=== PATIENT | male | born 1990 | race Hispanic/Latino ===

== ENCOUNTER 2024-12-28 15:11 | Emergency (ER) | payer SELFPAY ==
[~2024-12-28] VITALS: Ht 172.7 cm; Wt 122.5 kg
[~2024-12-28 15:11] MED LIST: IBUP-2070 PO
--- NOTE | 2024-12-28 15:43 | HMCIMG ---
EXAM: CR Lumbar Spine, 3 View. CLINICAL HISTORY: back pain COMPARISON: None provided. FINDINGS: BONES: No acute fracture or aggressive appearing osseous lesion. ALIGNMENT: Alignment is within normal limits. No significant scoliosis. DISCS / DEGENERATIVE CHANGES: Mild disc disease at L5-S1. SOFT TISSUES: The soft tissues are unremarkable. IMPRESSION: No acute lumbar spine abnormality evident. Mild disc disease at L5-S1. /[place]
--- NOTE | 2024-12-28 15:50 | ERN ---
ED Note History of Present Illness Stated Complaint: BACK PAIN Chief Complaint: Back Pain or Injury Time Seen by MD: 15:14 Time Seen by Midlevel: 15:16 Dictation: 34-year-old male with no past medical history or surgical history coming in with complaints of lower back pain onset yesterday but worsening today. Denies any incontinence, numbness, tingling or weakness. Denies any trauma. Allergies: Coded Allergies: No Known Drug Allergies (Unverified Allergy, Unknown, 12/28/24) Home Meds Active Scripts Ibuprofen (Ibuprofen) 600 Mg Tablet, 600 MG PO Q6H PRN for PAIN, #15 TAB Prov:DAVID AGUILAR CONTACT ASSEMBLER 11/26/21 Past Medical History Past Medical History: No Pertinent History Surgical History: None Review of System Dictation Constitutional: Negative for fever,chills, and weight loss Eyes: Negative for injury, pain,redness, and discharge ENT: Negative for injury,pain or swelling Cardiovascular: Negative for chest pain, palpitations, and edema Respiratory: Negative for shortness of breath, cough, and wheezing, Abdomen/GI: Negative for abdominal pain, nausea, vomiting, diarrhea, and constipation Back: Complaining of lower back pain : Negative for injury, bleeding and discharge MS/Extremity: Negative for injury and deformity Skin: Negative for rash, and discoloration Neuro: Negative for headache, weakness, numbness, tingling, and seizure Psych: Negative for suicide ideation, homicidal ideation, and hallucinations Review of Systems: was completed Initial Vital Sign VS Vital Signs Date Time Temp Pulse Resp B/P (MAP) Pulse Ox O2 Delivery O2 Flow Rate FiO2 12/28/24 15:15 98.4 78 16 143/93 99 Room Air 0 12/28/24 15:49 21 Physical Exam Dictation General: awake, alert, NAD Head/Face: Normocephalic, atraumatic Eyes: PERRL, EOMI, vision at baseline ENT: oral cavity clear, TMs clear, no signs of infection Neck: Trachea midline, supple, no nuchal rigidity Cardiovascular: RRR, normal S1/S2, No MRGs, no JVD Respiratory: CTAB, no respiratory distress, No rales or wheezes Abdomen: Soft, non-tender, non-distended, normal bowel sounds, no guarding or rebound. Skin: Warm, dry, normal turgor, no rash MS/Extremity: Pulses equal, no cyanosis, neurovascular intact, FROM Neuro: COAx4, GCS 15, strength 5/5, CN 2-12 intact, normal cerebellar exam, normal gait, Psych: Normal behavior, mood, and affect normal ED Course ED Course Orders Procedure Category Date Status Time Lumbar Spine 2-3vws RAD 12/28/24 Resulted 15:16 Triamcinolone Acet PHA 12/28/24 Complete 40mg/Ml 1ml (Kenalog 15:16 Orphenadrine Citrate PHA 12/28/24 Complete (Norflex) 15:16 Ketorolac PHA 12/28/24 Complete Tromethamine 15mg/Ml 15:16 Tramadol Hcl (Ultram) PHA 12/28/24 Transmitted 16:55 Current Medications Medications (Trade) Dose Ordered Sig/Elicia Route PRN Reason Start Time Stop Time Status Last Admin Dose Admin Ketorolac Tromethamine (toRADol) 15 mg ONCE STAT IM 12/28/24 15:16 12/28/24 15:24 DC 12/28/24 16:10 Orphenadrine Citrate (Norflex) 60 mg ONCE STAT IM 12/28/24 15:16 12/28/24 15:24 DC 12/28/24 16:10 Triamcinolone Acetonide (Kenalog 40) 40 mg ONCE STAT IM 12/28/24 15:16 12/28/24 15:24 DC 12/28/24 16:10 Vital Signs Date Time Temp Pulse Resp B/P (MAP) Pulse Ox O2 Delivery O2 Flow Rate FiO2 12/28/24 15:49 98.4 78 16 143/93 99 Room Air* 0 21 12/28/24 15:15 98.4 78 16 143/93 99 Room Air 0 Medical Decision Making MDM MDM: 34-year-old male with no past medical history or surgical history coming in with complaints of lower back pain onset yesterday but worsening today. Denies any incontinence, numbness, tingling or weakness. Denies any trauma. X-ray of the L-spine shows mild disc disease at L5 through S1. No acute lumbar spine abnormality. We will prescribe him medications to take at home but he needs to follow up outpatient with PCP. Patient verbalized understanding, answered all questions. Differential diagnosis: Acute back pain, muscle spasm, muscle strain Rationale: Tests considered and ordered secondary to shared decision making include: Previous outside records reviewed: Old ER visits. Risk of complication and/or morbidity or mortality of patient management: None Medications-Per medication reconciliation Need for hospitalization: Patient does not meet criteria for hospitalization. Need for emergency major/minor surgery: No There are no social concerns with this patient. Prescription drug management Prescriptions will include symptomatic care Patient's prior external medical records from other ER visits were reviewed by me as indicated. Prior testing and results from previous visits were reviewed. Prior tests were taken into account with medical decision making and resource utilization, independent historian/historians were used to obtain complete medical history. I independently interpreted the test that were performed, results were reviewed by me and considered findings on radiology if ordered. Medical management and examination interpretation discussions were had by me with other qualified healthcare professionals as indicated for the patient's care. DX & DISP Disposition: Discharge Departure Impression: Primary Impression: Degenerative disc disease Additional Impression: Muscle spasm Condition: Stable Scripts Ketorolac Tromethamine (Ketorolac Tromethamine) 10 Mg Tablet 1 TAB PO Q6HPRN PRN for pain for 5 Days, #20 TAB 0 Refills Prov: MAVIS RECINOS NP 12/28/24 Methocarbamol (Methocarbamol) 1,000 Mg Tablet 1000 MG PO TID for 5 Days, #15 TAB Prov: MAVIS RECINOS NP 12/28/24 Lidocaine (Lidocaine) 4 % Adh..patch 1 PATCH TP DAILY for 10 Days, #10 PATCH 0 Refills Prov: MAVIS RECINOS NP 12/28/24 Additional Instructions: take medications as prescribed. Follow up with your PCP in 1-2 days. Referrals: SELF,REFERRAL (PCP) Time of Disposition: 15:48 I have reviewed the case, and I agree with, Diagnosis and Plan MAVIS RECINOS NP Dec 28, 2024 15:50
[2024-12-28] MEDS: TRIAMCINOLONE ACETONIDE 40 MG/ML 1ML VIAL IM STA (16:10)
[2024-12-28] MEDS: ORPHENADRINE 60MG/2ML IM STA (16:10)
[2024-12-28] MEDS ORDERED: LIDO1ADH82 TP (16:58)
[2024-12-28] MEDS ORDERED: KETO10TA2 PO (16:58)
[2024-12-28] MEDS ORDERED: METH100054 PO (16:58)
[2024-12-28 17:17] VITALS: BP 132/78; PULSE 72; RESP 16; TEMP 98.4; O2SAT 99
== END 2024-12-28 17:18 | disposition home or self-care (01) ==
LOC: EDH 15:11
DX: M51.369 Other intervertebral disc degeneration, lumbar region without mention of lumbar back pain or lower extremity pain (principal); M62.838 Other muscle spasm
CPT/HCPCS: 99284; 72100; 96372 ×3; J1885; J3301; J2360